=== PATIENT | male | born 1955 | race Caucasian/White ===

== ENCOUNTER 2017-07-25 11:58 | Day surgery (SDC) | payer OTHER ==
[2017-07-25] MEDS ORDERED: DIPHENHYDRAMINE 50 MG INJ (14:48)
[2017-07-25] MEDS ORDERED: FENTAnyl 50 MCG/ML VIAL (15:08)
[2017-07-25] MEDS ORDERED: MIDAZOLAM 1 MG/ML 2 ML INJ ×3 (15:08)
== END 2017-07-25 16:17 | disposition home or self-care (01) ==
LOC: GIL 11:58
DX: D12.6 Benign neoplasm of colon, unspecified (principal)
CPT/HCPCS: 45380; 88305